=== PATIENT | female | born 1985 | race Hispanic/Latino ===

== ENCOUNTER 2018-10-04 20:08 | Emergency (ER) | payer SELFPAY ==
[~2018-10-04] VITALS: Ht 160 cm; Wt 82.6 kg
[2018-10-04] MEDS ORDERED: CLONIDINE HCL 0.2 MG TAB PO ONE (20:45)
[2018-10-04] MEDS ORDERED: ACETAMINOPHEN 325 MG TAB PO ONE (20:45)
== END 2018-10-04 21:10 | disposition home or self-care (01) ==
LOC: FSED 20:08
DX: R50.9 Fever, unspecified (principal); R05 Cough; J11.1 Influenza due to unidentified influenza virus with other respiratory manifestations; I10 Essential (primary) hypertension
CPT/HCPCS: 87400; 99283